=== PATIENT | female | born 2000 | race Caucasian/White ===

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

== ENCOUNTER 2020-01-29 16:29 | Outpatient (REF) | payer MEDICAID, SELFPAY ==
[2020-01-29 20:53] LABS: TSH 0.37 uIU/mL (0.52-4.13)
== END 2020-01-29 16:49 ==
LOC: NCHCN 16:29
PROVIDERS: PCP Family Medicine; Visit Provider Family Medicine
DX: E03.9 Hypothyroidism, unspecified (principal)
CPT/HCPCS: 84443

== ENCOUNTER 2020-05-22 13:47 | Outpatient (REF) | payer MEDICAID, SELFPAY ==
[2020-05-25 16:35] LABS: COVID-19 RT-PCR Result NEGATIVE (Negative)
== END 2020-05-22 14:07 ==
LOC: NCHCN 13:47
PROVIDERS: PCP Family Medicine; Visit Provider Family Medicine
DX: Z20.828 Contact with and (suspected) exposure to other viral communicable diseases (principal)
CPT/HCPCS: U0003

== ENCOUNTER 2020-05-31 21:12 | Outpatient (REF) | payer MEDICAID, SELFPAY ==
[2020-05-31 22:15] LABS: TSH 3.75 uIU/mL (0.52-4.13)
== END 2020-05-31 21:32 ==
LOC: NCHCN 21:12
PROVIDERS: PCP Family Medicine; Visit Provider Family Medicine
DX: E03.9 Hypothyroidism, unspecified (principal)
CPT/HCPCS: 84443

== ENCOUNTER 2021-06-09 22:16 | Outpatient (REF) | payer MEDICAID, SELFPAY ==
[2021-06-09 22:32] LABS: TSH 2.62 uIU/mL (0.36-3.74)
== END 2021-06-09 22:17 | disposition home or self-care (01) ==
LOC: NCHCN 22:16
PROVIDERS: PCP Family Medicine; Visit Provider Family Medicine
DX: E03.9 Hypothyroidism, unspecified (principal)
CPT/HCPCS: 84443

== ENCOUNTER 2022-03-30 16:28 | Outpatient (REF) | payer MEDICAID, SELFPAY ==
[2022-03-30 16:40] LABS: Abs Immature Grans 0.02 10^3/uL (0.0-0.06); Absolute Basophil Count 0.05 10^3/uL (0.0-0.2); Absolute Eosinophil Count 0.31 10^3/uL (0.0-0.7); Absolute Lymphocyte Count 1.54 10^3/uL (1.2-3.4); Absolute Monocyte Count 0.52 10^3/uL (0.1-0.8); Absolute Neutrophil Count 1.68 10^3/uL (1.2-6.7); Basophils % 1.2; Eosinophils % 7.5; HCT 38.1 % (36.0-46.0); Immature Grans % 0.5; Lymphocytes % 37.4; MCH 25.7 pg (27.0-33.0); MCHC 31.5 % (32.0-36.0); MCV 82 fL (80-95); MPV 11.9 fL (8.0-11.0); Monocytes % 12.6; Neutrophils % 40.8; Platelet Count 319 10^3/uL (130-400); RBC 4.67 10^6/uL (3.93-5.22); RDW 14.3 % (11.7-14.6); RDW-SD 42.3 fL; WBC 4.12 10^3/uL (4.4-10.8)
[2022-03-30 17:27] LABS: Mono Screening Negative (Negative)
[2022-03-30 19:06] LABS: ALT 19 U/L (14-59); AST 33 U/L (15-37); Alkaline Phosphatase 69 U/L (46-116); Anion Gap 11.1 mmol/L (3-11); BUN 9 mg/dL (7-18); CO2 24.9 mmol/L (21.0-32.0); CREATININE 0.6 mg/dL (0.55-1.02); Calcium 9.3 mg/dL (8.5-10.1); Chloride 105 mmol/L (98-107); Estimated GFR 130.88 (mL/min/1.73m2); Glucose 81 mg/dL (74-106); Sodium 141 mmol/L (136-145); Total Protein 7.4 g/dL (6.4-8.2)
[2022-03-30 19:28] LABS: HCG Quant, Pregnancy < 1 mIU/mL (1-3)
== END 2022-03-30 16:29 | disposition home or self-care (01) ==
LOC: NCHCN 16:28
PROVIDERS: PCP Family Medicine; Visit Provider Nurse Practitioner Family
DX: R53.83 Other fatigue (principal); E03.9 Hypothyroidism, unspecified; G43.109 Migraine with aura, not intractable, without status migrainosus
CPT/HCPCS: 80053; 84443; 84702; 85025; 86308

== ENCOUNTER 2022-09-01 16:44 | Outpatient (REF) | payer MEDICAID, SELFPAY ==
[2022-09-01 21:06] LABS: C-Reactive Protein 0.06 mg/dL (0.0-0.3)
[2022-09-01 21:23] LABS: HCT 37.7 % (36.0-46.0); HGB 11.7 g/dL (11.2-15.7); MCH 25.9 pg (27.0-33.0); MCV 83 fL (80-95); MPV 11.7 fL (8.0-11.0); Platelet Count 320 10^3/uL (130-400); RBC 4.52 10^6/uL (3.93-5.22); RDW 14.8 % (11.7-14.6); RDW-SD 44.3 fL; WBC 5.63 10^3/uL (4.4-10.8)
[2022-09-01 21:33] LABS: Vitamin D 25 Total 34.3 ng/mL (30-100)
[2022-09-03 10:08] LABS: Lyme Ab w Rflx to Lyme Confirm Negative (Negative)
[2022-09-03 12:34] LABS: IgA 189 mg/dL (85-499); Interpretation (See Note); Tissue Transglutaminase IgA <1.2 U/mL (<4.0)
[2022-09-03 13:30] LABS: ANA Interpretation Negative (Negative)
[2022-09-05 15:25] LABS: Anaplasma phagocytophilum Negative (Negative); B. miyamotoi PCR Negative (Negative); Babesia divergens/MO-1 Negative (Negative); Babesia duncani Negative (Negative); Babesia microti Negative (Negative); Ehrlichia chaffeensis Negative (Negative); Ehrlichia ewingii/canis Negative (Negative); Ehrlichia muris eauclairensis Negative (Negative)
== END 2022-09-01 16:45 | disposition home or self-care (01) ==
LOC: NCHCN 16:44
PROVIDERS: PCP Family Medicine; Visit Provider Family Medicine
DX: M25.59 Pain in other specified joint (principal); E55.9 Vitamin D deficiency, unspecified
CPT/HCPCS: 82306; 82784; 83516; 85027; 87798; 86038; 86140; 86618

== ENCOUNTER 2022-12-11 11:22 | Outpatient (REF) | payer MEDICAID, SELFPAY ==
--- NOTE | 2022-12-11 10:45 | PAPFT_PTH ---
PATIENT: Rajiv Self LOC: [facility]#:[id number] AGE/SX: 21/F ROOM: RE12/11/[address]: Kassy Ayala : 2000 BED: DIS: 12/11/2022 SPEC #: [id number] RECD: 12/11/22 16:53 STATUS: DECLAN REQ #: [id number] JEANCARLOS: 12/11/22 10:[address]: Kassy Ayala DEPT: [facility] Cytology RECD BY: Marti Kim Tissues: 1 - CX/ENDOCX FOR PAP SMEARS Procedures: PAP THIN PREP/[facility] Screening Comments: [id number]
--- OUTSIDE RECORDS SUMMARY | 2022-12-11 11:26 | XMS_ITS | CCD ---
Author Name Unknown Address [address] [place] [id number] Organization Unknown Address [address], [place] [id number] Care Team Providers Care Pre K Lead Teacher Name Role Phone DIVYA ROJAS Attending Physician [phone] DIVYA ROJAS Rounding (Secondary) Physici an [phone] Vital Signs Unknown or Not Available. Allergies Allergy Code Allergy Type Reaction Status PCN (PENICILLIN) {Clinical monitoring unavailable} 0 Drug allergy RASH Active AMOXICILLIN 723 Drug allergy RASH Active Procedures Unknown or Not Available. History of Immunizations Unknown or Not Available. Problems Unknown or Not Available. Results Unknown or Not Available. Active Medications Medication Code Dose Units Frequency Route Modificatio n Start Date/Time Depo-Provera 150MG/1ML Intramuscular Suspension 3808045 1 EACH Q 3 MONTHS INTRAMUSCULA R 07/08/2017 13:33 Prescription Detail INJECT 1 EACH INTRAMUSCULAR Q 3 MONTHS Levothyroxine 100MCG Oral Tablet 884608 100 MICROGRAM DAILY ORAL 07/08/2017 13:33 Prescription Detail TAKE 100 MICROGRAM ORAL DAILY Medications Administered During Visit Unknown or Not Available. Encounters Encounter Diagnosis Diagnosis Code Start Date Deep pain on intercourse [id number] Social History Smoking Status Code Start Date End Date Never smoker [id number] Patient Decision Aids Unknown or Not Available. Discharge Instructions You were admitted to [facility] on 11/04/2022 10:48 with a principal diagnosis of Deep dyspareunia You were discharged from [facility] on 11/04/2022 10:49 Should you have any questions prior to discharge, please contact a member of your healthcare team. If you have left the hospital and have any questions, please contact your primary care physician. Chief Complaint and Reason For Visit Unknown or Not Available. Function Status Unknown or Not Available. Plan of Care Unknown or Not Available. Referral/Transition of Care Unknown or Not Available.
== END 2022-12-11 11:23 | disposition home or self-care (01) ==
LOC: NCHCN 11:22
PROVIDERS: PCP Family Medicine; Visit Provider Family Medicine
DX: Z00.00 Encounter for general adult medical examination without abnormal findings (principal)
CPT/HCPCS: 88142

== ENCOUNTER 2023-12-14 15:24 | Outpatient (REF) | payer MEDICAID, SELFPAY ==
[2023-12-14 21:22] LABS: Hemoglobin A1C 5.4 % (<5.7)
[2023-12-14 21:44] LABS: ALT 22 U/L (14-59); AST 17 U/L (15-37); Alkaline Phosphatase 70 U/L (46-116); Anion Gap 7.9 mmol/L (3-11); BUN 8 mg/dL (7-18); Bilirubin, Total 0.82 mg/dL (0.2-1.0); CO2 29.1 mmol/L (21.0-32.0); CREATININE 0.7 mg/dL (0.55-1.02); Calcium 9.4 mg/dL (8.5-10.1); Chloride 106 mmol/L (98-107); Estimated GFR 125.33 (mL/min/1.73m2); Glucose 81 mg/dL (74-106); Potassium 4.2 mmol/L (3.5-5.1); Sodium 143 mmol/L (136-145); TSH (W/Ref FT4) 13.97 uIU/mL (0.36-3.74); Total Protein 7.3 g/dL (6.4-8.2); Vitamin B12 728 pg/mL (193-986); Vitamin D 25 Total 37.5 ng/mL (30-100)
[2023-12-14 22:01] LABS: FREE T4 0.89 ng/dL (0.76-1.46)
[2023-12-14 22:39] LABS: Calculated LDL 94 mg/dL (<100); Cholesterol 157 mg/dL (<200); HDL Cholesterol 52 mg/dL (40-60); Triglyceride 55 mg/dL (<150)
== END 2023-12-14 15:25 | disposition home or self-care (01) ==
LOC: NCHCN 15:24
PROVIDERS: PCP Family Medicine; Visit Provider Family Medicine
DX: Z00.00 Encounter for general adult medical examination without abnormal findings (principal); E03.9 Hypothyroidism, unspecified; E55.9 Vitamin D deficiency, unspecified; R63.8 Other symptoms and signs concerning food and fluid intake; Z13.220 Encounter for screening for lipoid disorders; Z13.1 Encounter for screening for diabetes mellitus; R68.89 Other general symptoms and signs
CPT/HCPCS: 80053; 80061; 82306; 82607; 83036; 84439; 84443

== ENCOUNTER 2024-02-17 17:16 | Outpatient (REF) | payer MEDICAID, SELFPAY ==
[2024-02-17 22:06] LABS: TSH 5.27 uIU/Ml (0.36-3.74)
== END 2024-02-17 17:17 | disposition home or self-care (01) ==
LOC: NCHCN 17:16
PROVIDERS: PCP Family Medicine; Visit Provider Family Medicine
DX: E03.9 Hypothyroidism, unspecified (principal)
CPT/HCPCS: 84443

== ENCOUNTER 2024-08-16 11:11 | Outpatient (REF) | payer MEDICAID, SELFPAY ==
[2024-08-16 15:01] LABS: TSH 4.54 uIU/mL (0.36-3.74)
== END 2024-08-16 11:12 | disposition home or self-care (01) ==
LOC: NCHCN 11:11
PROVIDERS: PCP Family Medicine; Visit Provider Family Medicine
DX: E03.9 Hypothyroidism, unspecified (principal)
CPT/HCPCS: 84443